=== PATIENT | female | born 1995 | race African-American/Black ===

== ENCOUNTER 2021-08-12 13:47 | Emergency (ER) | payer BC ==
[2021-08-12 14:41] VITALS: BP 136/82; PULSE 98; RESP 16; TEMP 97.9
[2021-08-12] MEDS ORDERED: ACETAMINOPHEN TAB 325 MG TAB PO STA (15:11)
--- NOTE | 2021-08-12 15:15 | ED ---
General Adult HPI - General Chief complaint: Head Injury Stated complaint: Head Injury Time Seen by Provider: 08/12/21 15:11 Source: patient, RN notes reviewed Mode of arrival: ambulatory Limitations: no limitations - History of Present Illness Initial comments: Well-appearing 25-year-old female, alert and oriented 4, presents to the emergency room with a right basilar headache for the past 5 days. Patient states that she is here doing clinicals and an IV pole was knocked over hitting her in the back of the head. She did not lose consciousness. She did not have any bleeding or swelling. She states that she continues to be point tenderness having bouts of dizziness. She states that she is under a lot of stress with school. She denies any nausea vomiting or fevers. She denies any blurred vision or focal neurological deficits. She does take Lexapro -: days(s) (5) Location: head (Right-sided basilar skull tenderness) Radiation: non-radiation Severity scale (1-10): 6 Quality: aching Consistency: intermittent Improves with: none Worsens with: none Associated Symptoms: headaches, other (Dizziness) Treatments Prior to Arrival: none - Related Data Allergies Allergy/AdvReac Type Severity Reaction Status Date / Time Penicillins Allergy Unknown Verified 08/12/21 14:41 Review of Systems ROS Statement: Those systems with pertinent positive or pertinent negative responses have been documented in the HPI. ROS Other: All systems not noted in ROS Statement are negative. Past Medical History Past Medical History: No Reported History History of Any Multi-Drug Resistant Organisms: None Reported Past Surgical History: No Surgical Hx Reported Past Psychological History: No Psychological Hx Reported Smoking Status: Never smoker Past Alcohol Use History: Occasional Past Drug Use History: None Reported General Exam Limitations: no limitations General appearance: alert, in no apparent distress Head exam: Present: atraumatic, normocephalic, normal inspection Eye exam: Present: normal appearance, PERRL, EOMI. Absent: scleral icterus, conjunctival injection, nystagmus, periorbital swelling, periorbital tenderness Pupils: Present: normal accommodation ENT exam: Present: normal exam, normal oropharynx, mucous membranes moist Neck exam: Present: normal inspection, full ROM. Absent: tenderness, meningismus, lymphadenopathy, thyromegaly Respiratory exam: Present: normal lung sounds bilaterally. Absent: respiratory distress, wheezes, rales, rhonchi, stridor, chest wall tenderness, accessory muscle use Cardiovascular Exam: Present: regular rate, normal rhythm, normal heart sounds. Absent: systolic murmur, diastolic murmur, rubs, gallop, clicks, JVD Back exam: Present: normal inspection, full ROM. Absent: tenderness, CVA tenderness (R), CVA tenderness (L), rash noted Neurological exam: Present: alert, oriented X3 Expanded Patient oriented to: Present: person, place, time Speech: Present: fluid speech Cranial nerves: EOM's Intact: Normal, Gag Reflex: Normal, Tongue Deviation: Normal Eye Response: (4) open spontaneously Motor Response: (6) obeys commands Verbal Response: (5) oriented [place] Total: 15 Psychiatric exam: Present: normal affect, normal mood Skin exam: Present: warm, dry, intact, normal color. Absent: rash, cyanosis, diaphoretic Course Vital Signs 08/12/21 14:38 Temperature 97.9 F Pulse Rate 98 Respiratory 16 Rate Blood Pressure 136/82 O2 Sat by Pulse 100 Oximetry Medical Decision Making - Medical Decision Making 25-year-old female, alert and oriented 4, presents to the emergency room with a right basilar headache for the past 5 days after an IV pole was knocked over hitting her in the back of the head. She did not lose consciousness. She did not have any bleeding or swelling. She states that she continues to be point tenderness where it hit her and bouts of dizziness. She states that she is under a lot of stress with school. Denies nausea, vomiting, fevers, visual changes or focal neurological deficits. She presents with steady gait. She is directed to follow up with her primary care doctor this week. Return to the emergency room if any new or worsening symptoms. Disposition Clinical Impression: Concussion without loss of consciousness Disposition: HOME SELF-CARE Condition: Good Instructions (If sedation given, give patient instructions): Concussion (ED) Additional Instructions: Tylenol as needed for headaches, follow-up with your primary care doctor this week. Return to emergency room with any new or concerning symptoms. Is patient prescribed a controlled substance at d/c from ED?: No Referrals: Shakira Ervin MD [Primary Care Provider] - 1-2 days Time of Disposition: 15:28
== END 2021-08-12 15:47 | disposition home or self-care (01) ==
LOC: EC 13:47
DX: S06.0X0A Concussion without loss of consciousness, initial encounter (principal); R40.2362 Coma scale, best motor response, obeys commands, at arrival to emergency department; R40.2142 Coma scale, eyes open, spontaneous, at arrival to emergency department; R40.2252 Coma scale, best verbal response, oriented, at arrival to emergency department; W22.8XXA Striking against or struck by other objects, initial encounter
CPT/HCPCS: 99283